=== PATIENT | female | born 1985 | race Caucasian/White ===

== ENCOUNTER 2023-06-25 09:31 | Emergency (ER) | payer BC, SELFPAY ==
[2023-06-25 09:36] VITALS: BP 121/76
--- NOTE | 2023-06-25 10:18 | ED.GENMED ---
History of Present Illness
General
Chief Complaint: Back Pain
Source: patient
Exam Limitations: none
Time Seen by Provider: 06/25/23 09:39
Travel History
Have you had any contact with someone who has COVID-19?: No
Do you have any symptoms of coronavirus? Fever > 100 degrees, chills, cough, shortness of breath, sore throat, loss of taste or smell, muscle aches, or headache?: No
History of Present Illness
History of Present Illness:
38-year-old female complaining of left mid to lower back pain. Started suddenly at 4 AM. Nonpleuritic. Worse with position. Has had a slight cough for 2 weeks. No urinary symptoms. No blood in the urine no fever. No abdominal pain.
Past History
Past History
ED Past Medical History: None
ED Past Surgical History: Cholecystectomy
Social History
Tobacco: Non-smoker
Alcohol: None
Drug: None
Personal:
Living: with family
Review of Systems
Review of Systems
All Other Systems: Not applicable
Constitutional: Denies fever
Cardiac: Reports no symptoms
Phy Exam
Physical Exam
Physical Exam:
GENERAL: Alert and oriented in no apparent distress
EYE: Orbits normal.
NECK: Supple
CARDIAC: Regular rate and rhythm without any obvious murmurs.
LUNGS: Clear breath sounds,normal tender mildly over the left CVA to lower paralumbar. No CVA tenderness
ABDOMEN: Soft, without focal tenderness or distention
NEUROLOGICAL: Alert and oriented , grossly non-focal
SKIN: Warm and dry, no rash or lesion, no discoloration, skin intact.
MUSCULOSKELETAL: No edema,no deformity.Good color
PSYCH: Normal and appropriate interaction.
Course
Orders/Labs/Results
Orders:
Orders
06/25/23 10:03
IV Insert/Care/Rem.- Treatment PRN
Test Result ONCE
06/25/23 10:04
US Renal With Bladder Urgent
Comment: bladder not full ok, looking at ureteral jets
Reason For Exam: Left back pain
06/25/23 10:08
Complete Blood Count/With Diff Urgent
Comprehensive Metabolic Panel Urgent
HCG, Serum Qualitative Screen Urgent
Lipase Urgent
06/25/23 10:49
Urinalysis Reflex To Culture Urgent
Date Specimen was Collected: 06/25/23
Time Specimen was Collected: 10:48
Urine Microscopic Reflex Cult Urgent
Urine Culture Urgent
SOFIE Source: U
Specimen Description:
Date Specimen was Collected: 06/25/23
Time Specimen was Collected: 10:48
06/25/23 11:45
DDimer [D-Dimer] Urgent
06/25/23 12:32
CXR2 [CR Chest - 2 Views ] Urgent
Comment:
Reason For Exam: cough left back pain
06/25/23 13:09
Ibuprofen [Motrin] 600 mg .ROUTE .STK-MED ONE
06/25/23 13:13
Ibuprofen [Motrin] 600 mg PO NOW STA
06/25/23 13:55
Urinalysis Reflex To Culture Urgent
Date Specimen was Collected: 06/25/23
Time Specimen was Collected: 13:54
Urine Microscopic Reflex Cult Urgent
Urine Culture Urgent
SOFIE Source: U
Specimen Description:
Date Specimen was Collected: 06/25/23
Time Specimen was Collected: 13:54
Abnormal Lab Results
06/25/23 06/25/23 06/25/23
10:08 10:49 13:55
MCH 31.7 H pg
(27.0-31.0)
MPV 11.1 H fL
(7.4-10.4)
Carbon Dioxide 21 L mmol/L
(22-30)
Glucose 103 H mg/dl
(70-99)
Total Bilirubin 1.6 H mg/dl
(0.2-1.3)
Urine Ketones 2+ A 3+ A
(Negative) (Negative)
Ur Occult Blood Reflex Trace A
(Negative)
Leukocyte Esterase Rfl Trace A Trace A
(Negative) (Negative)
Urine WBC (Reflex) 11-15 A /HPF 11-15 A /HPF
(0-5) (0-5)
Urine Bacteria (Reflex) Moderate A Moderate A
(Negative) (Negative)
06/25/23 10:08
06/25/23 10:08
Vital Signs
Initial and Last Documented VS:
Initial Vital Signs
Temp Pulse Resp BP Pulse Ox
98.0 F 85 16 121/76 98
06/25/23 09:36 06/25/23 09:36 06/25/23 09:36 06/25/23 09:36 06/25/23 09:36
Last Documented Vital Signs
Temp Pulse Resp BP Pulse Ox
98.0 F 74 18 124/74 96
06/25/23 09:36 06/25/23 13:23 06/25/23 13:23 06/25/23 13:23 06/25/23 13:23
MDM/Problems Addressed
Differential Diagnosis Includes:
Symptoms are behaving very musculoskeletal. To consider PE although unlikely with sudden pain and recent cough. Doubt kidney stone however we will get urine and ultrasound.
*Critical Care Note
Total Time (30-74mins, 75-104mins- exclusive of procedures): Not Applicable
Update Note
Update Note:
Patient has a contaminated urine. Her left lower back/flank pain clinically is very musculoskeletal in nature. No CVA tenderness. No dysuria or frequency no fever or infectious issues. Workup is unremarkable. Discussed her
urinalysis/contaminated. She did elect to repeat it which honestly is no better. Clinically very low suspicion for UTI. Will hold on treatment at this time
ED Attending Note
-
Portions of this chart may have been created with voice recognition software.� Occasional wrong word or��sound alike� substitutions may have occurred due to the inherent limitations of voice recognition software.
Discharge Plan
Departure
Patient Disposition: Home (Routine Discharge)
Date of Disposition: 06/25/23
Time of Disposition: 13:36
Patient with high blood pressure during this ER visit?: Yes
Discharge Problem:
Left lower back/flank pain, Recent cough
Instructions: Low Back Pain (DC), Flank Pain (DC), BLOOD PRESSURE
Prescriptions:
No Action
naproxen sodium [Aleve] 220 MG tablet
220 mg PO Q12H
acetaminophen 325 MG tablet
650 mg PO Q4HPRN PRN (Reason: mild pain) Qty: 1 0RF
oxycodone 5 MG tablet
5 mg PO Q4HPRN PRN (Reason: breakthrough/severe pain) Qty: 15 0RF
Referrals:
Henri Blakely, DO [Family Provider] - Follow up in 2-3 days
Interventions
Interventions:
*Risk Screen - Suicide Last Done: 06/25/23 10:15
*General Assessment Last Done: 06/25/23 10:11
*Neglect/Abuse Screening Last Done: 06/25/23 10:15
ED- Fall Risk Assessment Last Done: 06/25/23 10:14
*ED COVID-19 Vaccine History Last Done: 06/25/23 09:36
*Nursing Disposition Last Done: 06/25/23 14:00
ED-Musculoskeletal Assessment Last Done: 06/25/23 10:11
Discharge Date and Time
Discharge Date/Time: 06/25/23 14:10
[2023-06-25 10:28] VITALS: BP 122/75
[2023-06-25 10:37] LABS: HCG, Serum Qualitative Screen Negative
[2023-06-25 10:45] LABS: ALT (SGPT) 23 U/L (0-35); AST (SGOT) 26 U/L (14-36); Albumin 4.4 g/dl (3.5-5.0); Alkaline Phosphatase 86 U/L (38-126); Blood Urea Nitrogen 15 mg/dl (7-17); Calcium 9.1 mg/dl (8.4-10.2); Carbon Dioxide 21 mmol/L (22-30); Chloride 107 mmol/L (98-107); Glucose 103 mg/dl (70-99); Lipase 74 U/L (23-300); Potassium 4.2 mmol/L (3.5-5.1); Sodium 135 mmol/L (135-145); Total Bilirubin 1.6 mg/dl (0.2-1.3); Total Protein 7.2 g/dl (6.3-8.2); eGFR > 60.00
[2023-06-25 10:47] LABS: % Basophils 0.6 % (0-2); % Eosinophils 2.3 % (0-6); % Immature Granulocytes 0.3 % (0-0.5); % Lymphocytes 35.9 % (20.5-51.1); % Monocytes 6.5 % (1.7-9.3); % Neutrophils 54.4 % (42.2-75.2); Absolute Eosinophils 0.2 10^3/uL (0-0.7); Absolute Lymphocytes 2.5 10^3/uL (1.2-3.4); Absolute Monocytes 0.4 10^3/uL (0.1-0.6); Absolute Neutrophils 3.7 10^3/uL (1.4-6.5); Hematocrit 43.7 % (37.0-47.0); Hemoglobin 15.1 g/dL (12.0-16.0); Mean Corp Hgb Conc. 34.6 g/dL (33.0-37.0); Mean Corpuscular Hgb 31.7 pg (27.0-31.0); Mean Corpuscular Volume 91.6 fL (81.0-99.0); Mean Platelet Volume 11.1 fL (7.4-10.4); Nucleated Red Blood Cells % 0 %; Platelet Count 340 10^3/uL (130-400); Red Blood Cell Count 4.77 10^6/uL (4.20-5.40); Red Cell Dist. Width 12.1 % (11.5-14.5); White Blood Cell Count 6.8 10^3/uL (4.8-10.8)
[2023-06-25 10:56] LABS: Urine Albumin Negative (Neg - Trace); Urine Bilirubin Negative (Negative); Urine Character Clear (Clear); Urine Color Yellow; Urine Glucose Negative (Negative); Urine Ketone 2+ (Negative); Urine Leukocyte Trace (Negative); Urine Nitrite Negative (Negative); Urine Occult Blood Trace (Negative); Urine Specific Gravity 1.025 (<1.030); Urine Urobilinogen Negative (Neg - 1+)
[2023-06-25 11:22] LABS: Urine Squamous Cell >30 /LPF (Few)
[2023-06-25 11:24] LABS: Urine Bacteria Moderate (Negative)
[2023-06-25 11:28] LABS: Urine Red Blood Cell 0-2 /HPF (0-2)
[2023-06-25 12:17] LABS: D-Dimer 0.32 ug/mlFEU (0.00-0.50)
[2023-06-25] MEDS: MOTRIN 600 MG PO (13:13)
[2023-06-25 13:23] VITALS: BP 124/74
[2023-06-25 14:23] LABS: Urine Albumin Negative (Neg - Trace); Urine Bilirubin Negative (Negative); Urine Character Clear (Clear); Urine Color Yellow; Urine Glucose Negative (Negative); Urine Ketone 3+ (Negative); Urine Leukocyte Trace (Negative); Urine Nitrite Negative (Negative); Urine Occult Blood Negative (Negative); Urine Specific Gravity 1.025 (<1.030); Urine Urobilinogen Negative (Neg - 1+)
[2023-06-25 14:56] LABS: Urine Squamous Cell >30 /LPF (Few)
[2023-06-25 14:59] LABS: Urine Bacteria Moderate (Negative); Urine Red Blood Cell None Seen /HPF (0-2)
== END 2023-06-25 14:10 | disposition home or self-care (01) ==
LOC: EMR 09:31
PROVIDERS: EMERGENCY PHYSICIAN Emergency Medicine; FAMILY PHYSICIAN Family Medicine
DX: M54.50 Low back pain, unspecified (principal); R10.9 Unspecified abdominal pain; R05.9 Cough, unspecified
CPT/HCPCS: 99284; 71046; 76770; 80053; 81003; 81015; 83690; 84703; 85025; 85379; 87086

== ENCOUNTER → 2023-07-30 08:52 | Outpatient (REF) | payer BC, SELFPAY | LOC: PAVMRI 08:52 | PROVIDERS: ATTENDING PHYSICIAN Student in an Organized Health Care Education/Training Program | DX: R51.9 Headache, unspecified (principal) | CPT/HCPCS: 70551 ==

== ENCOUNTER → 2023-08-06 10:18 | Outpatient (REF) | payer BC, SELFPAY | LOC: HWRCS 10:18 | PROVIDERS: ATTENDING PHYSICIAN Internal Medicine Interventional Cardiology; FAMILY PHYSICIAN Student in an Organized Health Care Education/Training Program | DX: E78.2 Mixed hyperlipidemia (principal); Z82.49 Family history of ischemic heart disease and other diseases of the circulatory system; E66.01 Morbid (severe) obesity due to excess calories; R06.09 Other forms of dyspnea | CPT/HCPCS: 93306 ==

== ENCOUNTER → 2023-08-11 09:07 | Outpatient (REF) | payer BC, SELFPAY | LOC: RCS 09:07 | PROVIDERS: ATTENDING PHYSICIAN Internal Medicine Interventional Cardiology; FAMILY PHYSICIAN Student in an Organized Health Care Education/Training Program | DX: E78.2 Mixed hyperlipidemia (principal); Z82.49 Family history of ischemic heart disease and other diseases of the circulatory system; E66.01 Morbid (severe) obesity due to excess calories; R06.09 Other forms of dyspnea | CPT/HCPCS: 93017 ==

== ENCOUNTER 2024-09-03 09:09 | Emergency (ER) | payer OTHER, SELFPAY ==
[2024-09-03 09:11] VITALS: BP 136/87
--- NOTE | 2024-09-03 10:07 | ED.GENMED ---
History of Present Illness
General
Chief Complaint: Headache
Source: patient
Exam Limitations: none
Time Seen by Provider: 09/03/24 10:07
Nursing documentation reviewed up to this point in time: agreed with
History of Present Illness
History of Present Illness:
Patient is a 39-year-old female who presents to the ER for evaluation of headache. Patient reports for the past year off-and-on she has had issues with chronic headache. For the past 2 weeks however pain has been increasing. She has been seen by
family doctor for this a year ago and did have an outpatient MRI which showed sinusitis. She was put on a steroid at that time. She is not seen her family doctor since however she reports she has had almost constant headaches worse when she is
laying down better when she is up walking around. She reports pain is usually in the back of her head. She reports recently she has been seen a chiropractor to try and alleviate some muscle tension in her neck last to the chiropractor on Friday
2 days ago. Last night she had a sharp pain in her right orthodox area and does have neck pain. She reports pain to the neck is all over. She denies any dizziness. She is nauseous with this at times. She occasionally takes ibuprofen and dual
action ibuprofen. She denies any double vision or vision issues. She has an appointment with [facility] neurology but that is not until May.
Past History
Past History
ED Past Medical History: None
ED Past Surgical History: Cholecystectomy
Social History
Tobacco: Non-smoker
Alcohol: None
Drug: None
Personal:
Living: with family
Review of Systems
Review of Systems
Allergies reviewed?: Yes
All Other Systems: ROS reviewed and negative except as documented in HPI and ROS
Constitutional: Reports no symptoms; Denies fever, fatigue or chills
EENT: Reports no symptoms
Respiratory: Reports no symptoms
Cardiac: Reports no symptoms
ABD/GI: Reports nausea
Musculoskeletal: Reports no symptoms
Skin: Reports no symptoms
Neurological: Reports dizzy and headache
Psychiatric: Reports no symptoms
Phy Exam
General Physical Exam
General Presentation: no apparent distress
General age: appears stated age
General Skin: warm and dry
General Habitus: normal
General Mental: alert
General Hydration: appears well hydrated
ENT Exam
ENT Exam: EOMI and neck supple
Eye Exam
Eye Exam: PERRL and EOMI
Eye Exam General: PERRL: bilateral and EOM intact: bilateral
Pupil Exam: Bilateral: round and reactive
Cardiovascular Exam
Cardiovascular Exam: regular rate/rhythm, no murmur and normal peripheral pulses
Pulmonary Exam
Pulmonary Exam: lungs clear and no respiratory distress
Neurological Exam
Neurological Exam: alert, oriented x3, no motor deficits and no sensory deficits
[place] Coma Scale
Eye Opening: Spontaneous
Verbal Response: Oriented
Motor Response: Obeys Commands
GCS Total Score: 15
Cerebellar
Cerebellar Function: normal finger to nose
Musculoskeletal Exam
Musculoskeletal Exam: full ROM
Skin Exam
Skin Exam: normal color and warm/dry
Psychiatric Exam
Psychiatric Exam: normal mood/affect
Course
Orders/Labs/Results
Orders:
Orders
09/03/24 10:19
CT Head & Neck Angio W/wo IV Urgent
Comment:
Reason For Exam: neck pain /headache
09/03/24 10:20
IV Insert/Care/Rem.- Treatment PRN
0.9% Sodium Chloride 1000 ml [Nss] 1,000 ml IV BOLUS
Diphenhydramine [Benadryl] 25 mg IV NOW STA
Metoclopramide [Reglan] 10 mg IV NOW STA
Test Result ONCE
09/03/24 10:21
Ketorolac [Toradol] 15 mg IV NOW STA
09/03/24 10:34
Complete Blood Count/With Diff Urgent
Comprehensive Metabolic Panel Urgent
HCG, Serum Qualitative Screen Urgent
09/03/24 13:27
Diazepam [Valium] 5 mg PO NOW STA
Abnormal Lab Results
09/03/24
10:34
MCH 32.3 H pg
(27.0-31.0)
MPV 10.7 H fL
(7.4-10.4)
Chloride 108 H mmol/L
(98-107)
Glucose 107 H mg/dl
(70-99)
09/03/24 10:34
09/03/24 10:34
Vital Signs
Initial and Last Documented VS:
Initial Vital Signs
Temp Pulse Resp BP Pulse Ox
98.3 F 78 16 136/87 96
09/03/24 09:11 09/03/24 09:11 09/03/24 09:11 09/03/24 09:11 09/03/24 09:11
Last Documented Vital Signs
Temp Pulse Resp BP Pulse Ox
98.3 F 65 18 106/56 98
09/03/24 09:11 09/03/24 12:26 09/03/24 12:26 09/03/24 12:26 09/03/24 12:26
MDM/Problems Addressed
Differential Diagnosis Includes:
Not limited to headache, muscle/tension, less likely dissection less likely cranial hemorrhage
MDM/Problems Addressed:
Patient presents for headaches. She has had headache issues for the past year or so the past 1 to 2 weeks associate with some neck soreness. CAT scan negative for dissection no other acute findings. Patient no acute distress afebrile no
meningismus patient did have relief of headache with Reglan Benadryl and Toradol. Will add a muscle relaxer she does seem tender throughout the neck muscles likely component of muscle/tension headache. Offered IV dose however she would like an
oral dose.will give 1 dose of oral Valium here and DC on Flexeril with instructions to alternate between Tylenol and ibuprofen moist heat and Flexeril as needed. Discussed close outpatient follow-up family doctor.
*Radiology
Radiology exam reviewed: radiology read reviewed
*Pulse Oximetry
Patient hypoxic: no
*Critical Care Note
Total Time (30-74mins, 75-104mins- exclusive of procedures): Not Applicable
ED Attending Note
-
Portions of this chart may have been created with voice recognition software.� Occasional wrong word or��sound alike� substitutions may have occurred due to the inherent limitations of voice recognition software.
Discharge Plan
Departure
Patient Disposition: Home (Routine Discharge)
Date of Disposition: 09/03/24
Time of Disposition: 13:26
Patient with high blood pressure during this ER visit?: Yes
Condition: Fair
Covid-19: Not Applicable
Discharge Problem:
Headache
Instructions: Headache, Adult (DC), BLOOD PRESSURE
Prescriptions:
New
cyclobenzaprine 10 mg tablet
10 mg PO Q8H PRN (Reason: muscle pain) Qty: 10 0RF
No Action
naproxen sodium [Aleve] 220 MG tablet
220 mg PO Q12H
acetaminophen 325 MG tablet
650 mg PO Q4HPRN PRN (Reason: mild pain) Qty: 1 0RF
oxycodone 5 MG tablet
5 mg PO Q4HPRN PRN (Reason: breakthrough/severe pain) Qty: 15 0RF
Referrals:
Kylie Low PA-C [Family Provider, Family Practice]
Activity Restrictions/Additional Instructions:
As discussed a prescription for muscle laxer was sent to your pharmacy .
take as directed. This will cause drowsiness no driving or drink alcohol while taking this medication. You may try warm moist heat to neck several times a day. In addition alternate with ibuprofen and Tylenol. Follow-up closely with your family
doctor in the next 2 days and return if any worsening of symptoms.
Interventions
Interventions:
*Risk Screen - Suicide Last Done: 09/03/24 09:55
*General Assessment Last Done: 09/03/24 09:55
*Neglect/Abuse Screening Last Done: 09/03/24 09:55
*ED- Fall Risk Assessment Last Done: 09/03/24 09:55
*ED COVID-19 Vaccine History Last Done: 09/03/24 09:55
ED- Neurological Assessment Last Done: 09/03/24 09:57
Discharge Date and Time
Print Language: FRISIAN
[2024-09-03] MEDS: NSS 1000 IV (10:49)
[2024-09-03] MEDS: REGLAN 10 MG IV (10:50)
[2024-09-03] MEDS: TORADOL 15 MG IV (10:51)
[2024-09-03] MEDS: BENADRYL 25 MG IV (10:51)
[2024-09-03 11:06] LABS: % Basophils 0.4 % (0-2); % Eosinophils 0.9 % (0-6); % Immature Granulocytes 0.1 % (0-0.5); % Lymphocytes 26.6 % (20.5-51.1); % Monocytes 5.7 % (1.7-9.3); % Neutrophils 66.3 % (42.2-75.2); Absolute Eosinophils 0.1 10^3/uL (0-0.7); Absolute Lymphocytes 1.8 10^3/uL (1.2-3.4); Absolute Monocytes 0.4 10^3/uL (0.1-0.6); Absolute Neutrophils 4.4 10^3/uL (1.4-6.5); Hematocrit 43.1 % (37.0-47.0); Hemoglobin 15.2 g/dL (12.0-16.0); Mean Corp Hgb Conc. 35.3 g/dL (33.0-37.0); Mean Corpuscular Hgb 32.3 pg (27.0-31.0); Mean Corpuscular Volume 91.5 fL (81.0-99.0); Mean Platelet Volume 10.7 fL (7.4-10.4); Nucleated Red Blood Cells % 0 %; Platelet Count 314 10^3/uL (130-400); Red Blood Cell Count 4.71 10^6/uL (4.20-5.40); Red Cell Dist. Width 12.2 % (11.5-14.5); White Blood Cell Count 6.7 10^3/uL (4.8-10.8)
[2024-09-03 11:24] LABS: HCG, Serum Qualitative Screen Negative
[2024-09-03 11:31] LABS: Albumin 4.3 g/dl (3.5-5.0); Blood Urea Nitrogen 7 mg/dl (7-17); Calcium 9.3 mg/dl (8.4-10.2); Carbon Dioxide 23 mmol/L (22-30); Chloride 108 mmol/L (98-107); Glucose 107 mg/dl (70-99); Potassium 4.3 mmol/L (3.5-5.1); Sodium 138 mmol/L (135-145); Total Bilirubin 1.2 mg/dl (0.2-1.3); eGFR > 60.00
[2024-09-03 12:26] VITALS: BP 106/56
[2024-09-03 12:36] LABS: AST (SGOT) 18 U/L (14-36)
[2024-09-03 12:42] LABS: ALT (SGPT) 21 U/L (0-35); Alkaline Phosphatase 84 U/L (38-126)
[2024-09-03] MEDS: VALIUM 5 MG PO (13:35)
== END 2024-09-03 13:42 | disposition home or self-care (01) ==
LOC: EMR 09:09
PROVIDERS: Nurse Practitioner; EMERGENCY PHYSICIAN Emergency Medicine; FAMILY PHYSICIAN Student in an Organized Health Care Education/Training Program
DX: R51.9 Headache, unspecified (principal); R03.0 Elevated blood-pressure reading, without diagnosis of hypertension
CPT/HCPCS: 99285; 96374; 96375 ×2; 96361; 70496; 70498; 80053; 84703; 85025; Q9967

== ENCOUNTER 2024-10-04 06:24 | Day surgery (SDC) | payer OTHER, SELFPAY | END 2024-10-04 14:07 | disposition home or self-care (01) | LOC: GI 06:24 | PROVIDERS: ATTENDING PHYSICIAN Internal Medicine Gastroenterology | DX: K62.5 Hemorrhage of anus and rectum (principal); K64.8 Other hemorrhoids; K57.30 Diverticulosis of large intestine without perforation or abscess without bleeding | CPT/HCPCS: 45378 ==